=== PATIENT | female | born 1955 ===

== ENCOUNTER → 2021-01-15 15:00 | Outpatient (CLI) | payer OTHER | END | disposition home or self-care (01) | LOC: PPH VACUNA 15:00 | PROVIDERS: ATTEND Emergency Medicine Pediatric Emergency Medicine | DX: Z23 Encounter for immunization (principal) ==

== ENCOUNTER 2021-02-05 14:24 | Outpatient (CLI) | payer OTHER | END 2021-02-05 14:25 | disposition home or self-care (01) | LOC: PPH VACUNA 14:24 | PROVIDERS: ATTEND Emergency Medicine Pediatric Emergency Medicine | DX: Z23 Encounter for immunization (principal) ==